=== PATIENT | female | born 1955 | race Caucasian/White ===

== ENCOUNTER 2018-12-21 17:02 | Emergency (ER) | payer MEDICARE ==
--- NOTE | 2018-12-21 17:49 | ED ---
Abdominal Pain/Female - HPI Summary HPI Summary: Patient complains of diffuse crampy abdominal pain and diarrhea 3. Per EMS patient also complained of being tachypnea clinically picked her up with O2 sats in the 80s. Patient states she does get anxious and tends to hyperventilate when anxious. Patient states abdominal pain resolved with third episode of diarrhea while waiting here in the waiting room. Also states shortness of breath and hyperventilation resolved at that time. Denies fever, cough, sore throat, CP, SOB, change in urine, vaginal symptoms. Medical history as HTN, hypothyroid, HDL, fibromyalgia. Abdominal surgical history is and Radha procedure and a half years ago. - History of Current Complaint Chief Complaint: EDAbdPain Stated Complaint: ABDOMINAL PAIN PER EMS Time Seen by Provider: 12/21/18 17:48 Hx Obtained From: Patient Onset/Duration: Sudden Onset, Lasting Hours Timing: Intermittent Episode Lasting Severity Initially: Severe Severity Currently: None Pain Intensity: 5 Pain Scale Used: 0-10 Numeric Location: Diffuse Character: Cramping Aggravating Factor(s): Nothing Alleviating Factor(s): Bowel Movement Associated Signs and Symptoms: Positive: Nausea, Diarrhea Allergies/Adverse Reactions: Allergies Allergy/AdvReac Type Severity Reaction Status Date / Time No Known Allergies Allergy Verified 12/21/18 17:46 PMH/Surg Hx/FS Hx/Imm Hx Endocrine/Hematology History: Denies: Hx Diabetes Cardiovascular History: Reports: Hx Hypertension Denies: Hx Pacemaker/ICD History: Denies: Hx Renal Disease Sensory History: Denies: Hx Eye Prosthesis, Hx Hearing Aid Opthamlomology History: Denies: Hx Legally Blind EENT History: Denies: Hx Deafness Psychiatric History: Denies: Hx Panic Disorder - Surgical History Surgery Procedure, Year, and Place: BILATERAL KNEE REPLACEMENTS 2014. LEFT SHOULDER REPLACEMENT 2014. DARIO PROCEDURE 2016 Infectious Disease History: No Infectious Disease History: Denies: Traveled Outside the [place] in Last 30 Days - Family History Known Family History: Positive: Non-Contributory - Social History Alcohol Use: Occasionally Hx Substance Use: No Hx Tobacco Use: No Review of Systems Positive: Fatigue Eyes: Negative ENT: Negative Cardiovascular: Negative Positive: Shortness Of Breath Positive: Abdominal Pain, Diarrhea, Nausea Genitourinary: Negative Musculoskeletal: Negative Skin: Negative Neurological: Negative Psychological: Normal All Other Systems Reviewed And Are Negative: Yes Physical Exam - Summary Physical Exam Summary: Abdomen soft nontender at this time. Triage Information Reviewed: Yes Vital Signs On Initial Exam: Initial Vitals Temp Pulse Resp BP Pulse Ox 100.6 F 67 20 111/50 98 12/21/18 17:13 12/21/18 17:13 12/21/18 17:13 12/21/18 17:13 12/21/18 17:13 Vital Signs Reviewed: Yes Appearance: Positive: Well-Appearing Skin: Positive: Warm Head/Face: Positive: Normal Head/Face Inspection Eyes: Positive: Normal Neck: Positive: Supple Respiratory/Lung Sounds: Positive: Clear to Auscultation Cardiovascular: Positive: Normal Abdomen Description: Positive: Nontender Musculoskeletal: Positive: Normal Neurological: Positive: Normal Psychiatric: Positive: Normal AVPU Assessment: Alert - [place] Coma Scale Best Eye Response: 4 - Spontaneous Best Motor Response: 6 - Obeys Commands Best Verbal Response: 5 - Oriented Coma Scale Total: 15 Procedures - Sedation Patient Received Moderate/Deep Sedation with Procedure: No Diagnostics - Vital Signs Vital Signs Temp Pulse Resp BP Pulse Ox 12/21/18 17:13 100.6 F 67 20 111/50 98 - Laboratory Result Diagrams: 12/21/18 18:36 12/21/18 18:36 Lab Statement: Any lab studies that have been ordered have been reviewed, and results considered in the medical decision making process. Abdominal Pain Fem Course/Dx - Course Course Of Treatment: Patient complains of diffuse crampy abdominal pain and diarrhea 3. Per EMS patient also complained of being tachypnea clinically picked her up with O2 sats in the 80s. Patient states she does get anxious and tends to hyperventilate when anxious. Patient states abdominal pain resolved with third episode of diarrhea while waiting here in the waiting room. Also states shortness of breath and hyperventilation resolved at that time. Denies fever, cough, sore throat, CP, SOB, change in urine, vaginal symptoms. Medical history as HTN, hypothyroid, HDL, fibromyalgia. Abdominal surgical history is and Radha procedure and a half years ago. Vital signs within normal limits. Is equal exam unremarkable. WBC 12.8. Lactic 4.0. Labs otherwise within normal limits. Patient received 2 L normal saline. Repeat lactic 2.1. No further symptoms during stay in the ED. - Diagnoses Provider Diagnoses: Diarrhea Discharge ED - Sign-Out/Discharge Documenting (check all that apply): Patient Departure - Discharge Plan Condition: Stable Disposition: HOME Patient Education Materials: Acute Diarrhea (ED) Referrals: Maris Mejia MD [Primary Care Provider] - Additional Instructions: Drink plenty of fluids to maintain hydration. Return to the ED for any worsening symptoms. - Billing Disposition and Condition Condition: STABLE Disposition: Home - Attestation Statements Provider Attestation: I was available for consult. This patient was seen by the RAD[facility]. The patient was not presented to, seen by, or examined by me. Collin Beasley MD
[2018-12-21] MEDS ORDERED: NS 0.9% 1000 ML** 1,000 ML IV ONE ×2 (17:55→20:27)
--- OUTSIDE RECORDS SUMMARY | 2018-12-21 18:36 | XMS REPORT | Continuity of Care Document ---
:1955 External Reference #:[id number] Author Name Dolores Nettles NP (transmitted by agent of provider Trinity Lopez) Address [address] [facility], [address] [place] [id number] Care Team Providers Name Role Phone Maris Posada MD - Internal Medicine Care Team Information Gifted Program Teacher [phone] Problems Active Problems Provider Date Arthroplasty of knee Maria Dolores Murphy M.D. Onset: 08/19/2016 Prosthetic arthroplasty of the hip Maria Dolores Murphy M.D. Onset: 08/19/2016 Obstructive sleep apnea syndrome Annie Gomez MD Onset: 10/13/2016 Tremor Shelbie Bruce M.D. Onset: 11/15/2016 Functional fecal incontinence Shelbie Bruce M.D. Onset: 11/15/2016 Low back pain Maria Dolores Murphy M.D. Onset: 11/30/2016 Body mass index 30+ - obesity Margy Laird DNP, RN, [employer]- Onset: 2017 Social History Type Date Description Comments Sex Unknown Tobacco Use Start: Unknown Former Cigarette End: Unknown Smoker ETOH Use Currently consumes occasional wine alcohol Tobacco Use Start: Unknown Patient is a former smoked for 3yrs 1PPD End: Unknown smoker Recreational Drug Use Denies Drug Use Tobacco Use Start: Unknown Secondhand smoke Indoors, 1x per week exposure or two Smoking Status Reviewed: 12/05/18 Secondhand smoke Indoors, 1x per week exposure or two Exercise Type/Frequency Does not exercise Allergies, Adverse Reactions, Alerts Description No Known Drug Allergies Medications Active Medications SIG Qnty Indications Ordering Date Provider Gabapentin 1 capsule by capri Sheehan, 08/31/2018 300mg Capsules mouth three MD times a day, after finishing the 200 mg twice a day for two weeks, Gabapentin take 2 tabs by 56caps G25.81 Donald Sheehan, 08/27/2018 100mg Capsules mouth twice a MD day for 2 weeks, then switch to 300 mg caps Proair HFA 2 puffs every 8.500gm J06.9 Alexandria Abdallabull, 05/07/2018 108(90Base) 4-6 hours as N.P. mcg/Act Aerosol needed Fluticasone Propionate 2 spray in each 16units J06.9 [place] Mustafa, 05/07 nostril in in N.P. 50mcg/Act Suspension the morning prn Amoxicillin 4 caps 1 hour 4caps [place] Mustafa, 08/29/2017 500mg Capsules before dental N.P. work (has taken this before without problems) Fentanyl 1 patch q 3 day Unknown 25mcg/HR Patches 72HR Myrbetriq daily Unknown 25mg Tablets ER 24HR Melatonin 1 tab by mouth Unknown 10mg Capsules at bedtime as needed for insomnia Calcium 500+D 1 by mouth every Unknown day [id number] Tablets Prochlorperazine 1 by mouth 4 Unknown Maleate times a day as 5mg Tablets needed Nexium 24HR 1 by mouth twice Unknown 20mg Tablets DR a day Desvenlafaxine ER 1 tab po qd Unknown 100mg Tablets ER 24HR Vitamin B Complex super complex 1 Unknown Tablets tab po qod Colestipol HCL 1 by mouth daily Unknown 1gm Tablets Olmesartan 1 tab po daily Unknown Medoxomil/Hydrochloroth iazide 40-25mg Tablets Multi Complete daily Unknown Capsules Oxycodone HCL 1-2 tabs by Unknown 5mg Capsules mouth every 4-6 hours as needed pain Synthroid take one tablet Unknown 0.1mg Tablets by mouth once daily as directed Celebrex 1 by mouth bid Unknown 200mg Capsules History Medications Pristiq 2 tabs by mouth in Alexandria Mustafa, N.P. 08/27/2018 - 100mg the evening 08/26/2018 Tablets ER 24HR Pristiq take one Alexandria Mustafa, N.P. 07/03/2018 - 50mg capsule/tablet 08/27/2018 Tablets ER 24HR daily by mouth Immunizations CPT Code Status Date Vaccine Lot # [id number] Given 11/23/2015 Influenza Virus 3Yrs & Over Vital Signs Date Vital Result Comment 12/05/2018 9:50am Height 67 inches 5'7" Weight 223.00 lb Heart Rate 64 /min BP Systolic Sitting 120 mmHg Lue large cuff BP Diastolic Sitting 76 mmHg Lue large cuff Respiratory Rate 12 /min O2 % BldC Oximetry 97 % BMI (Body Mass Index) 34.9 kg/m2 10/03/2018 10:41am Height 67 inches 5'7" Weight 218.25 lb Heart Rate 54 /min BP Systolic Sitting 130 mmHg Lue large cuff BP Diastolic Sitting 78 mmHg Lue large cuff Respiratory Rate 12 /min O2 % BldC Oximetry 95 % BMI (Body Mass Index) 34.2 kg/m2 Results Test Date Facility Test Result H/L Range Note Laboratory test 09/17/2018 [facility] C Reactive 3.69 mg/L Normal <8.01 1, [address] [place] [address] [phone] Erythrocyte Sed Rate 5 mm/Hr Normal 0-29 3 Laboratory test 08/27/2018 [facility] Iron (Fe) 61 g/dL Normal 50-[address] [place], [place] [id number] [phone] Ferritin 22.2 ng/mL Normal 11-307 1 [id number] 2 [id number] Procedures Date Code Description Status 11/13/2018 20637 Polysomnography Sleep Staging 4+ Parameters W/Cpap Completed Medical Devices Description No Information Available Encounters Type Date Location Provider Dx Diagnosis Office Visit 10/03/2018 [facility] G47.33 Obstructive sleep 10:30a [facility] apnea (adult) [employer] (pediatric) G25.81 Restless legs syndrome G47.14 Hypersomnia due to medical condition Office Visit 09/24/2018 [facility] Maria Elena H92.01 Otalgia, right 1:00p [facility] P[facility] ear Office Visit 09/17/2018 [facility] Alexandria H92.01 Otalgia, right 8:34a Moon, N.P. ear Office Visit 08/27/2018 [facility] Donald Sheehan, G47.33 Obstructive 9:00a Clinic [facility] sleep apnea (adult) (pediatric) G25.81 Restless legs syndrome Office Visit 07/03/2018 [facility] G47.33 Obstructive sleep 9:30a [facility] apnea (adult) [facility] (pediatric) G47.14 Hypersomnia due to medical condition Assessments Date Code Description Provider 12/05/2018 G47.33 Obstructive sleep apnea (adult) (pediatric) Dolores Nettles NP 12/05/2018 G25.81 Restless legs syndrome Dolores Nettles NP 12/05/2018 G47.14 Hypersomnia due to medical condition Dolores Nettles NP 11/13/2018 G47.33 Obstructive sleep apnea (adult) (pediatric) Annie Gomez MD 10/03/2018 G47.33 Obstructive sleep apnea (adult) (pediatric) Dolores Nettles NP 10/03/2018 G25.81 Restless legs syndrome Dolores Nettles NP 10/03/2018 G47.14 Hypersomnia due to medical condition Dolores Nettles NP 09/24/2018 H92.01 Otalgia, right ear Maria Elena Pérez, CAR 09/17/2018 H92.01 Otalgia, right ear Alexandria Mustafa, N.P. 08/27/2018 G47.33 Obstructive sleep apnea (adult) (pediatric) Donald Sheehan MD 08/27/2018 G25.81 Restless legs syndrome Donald Sheehan MD 07/03/2018 G47.33 Obstructive sleep apnea (adult) (pediatric) Dolores Nettles NP 07/03/2018 G47.14 Hypersomnia due to medical condition Dolores Nettles NP Plan of Treatment Future Appointment(s):01/16/2019 11:00 am - Dolores Nettles NP at [facility]12/05/2018 - Dolores Nettles NPG47.33 Obstructive sleep apnea (adult) (pediatric)Follow up:6 weeksRecommendations:You are being set up with a new ASV machine for your sleep apnea through [facility] . They will call you to set up an appointment to shredder picker your machine. If you have difficulty with your equipment, or need to replace your mask or hoses, please contact your homecare agency. If you have any further questions, please call the [facility] at [phone] If you haveany sleepiness while driving you MUST avoid operating a vehicle or machinery. 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 If you know you are sleepy and need to go somewhere, arrange for a ride or use public transportation. It is very important to not risk your safety or the safety of others.G25.81 Restless legs [id number] Hypersomnia due to medical condition Functional Status Description No Information Available Mental Status Description No Information Available Referrals Description No Information Available
[2018-12-21 18:43] LABS: ABS Lymphocytes 0.2 10^3/ul (1.0-4.8); ABS Monocytes 0.4 10^3/ul (0-0.8); ABS Neutrophils 12.1 10^3/ul (1.5-7.7); Eosinophil % 0.4 %; Hematocrit 41 % (35-47); Hemoglobin 13.4 g/dL (12.0-16.0); Lymphocyte % 1.8 %; Mean Corpuscular HGB Conc 33 g/dL (31-36); Mean Corpuscular Hemoglobin 25 pg (27-31); Mean Corpuscular Volume 78 fL (80-97); Mean Platelet Volume 7.9 fL (7.4-10.4); Platelet Count 318 10^3/uL (150-450); Red Blood Count 5.27 10^6 /uL (3.70-4.87); Red Cell Distribution Width 17 % (10-15); White Blood Count 12.8 10^3/uL (3.5-10.8)
[2018-12-21 19:07] LABS: ALT 15 U/L (7-52); AST 17 U/L (13-39); Albumin 4.2 g/dL (3.2-5.2); Albumin/Globulin Ratio 1.5 (1-3); Alkaline Phosphatase 83 U/L (34-104); Anion Gap 12 mmol/L (2-11); BUN/Creatinine Ratio 17.9 (8-20); Blood Urea Nitrogen 15 mg/dL (6-24); CO2 Carbon Dioxide 22 mmol/L (22-32); Calcium 9.1 mg/dL (8.6-10.3); Chloride 101 mmol/L (101-111); EGFR African American 82.3 (>60); Globulin 2.8 g/dL (2-4); Glucose 126 mg/dL (70-100); Potassium 3.7 mmol/L (3.5-5.0); Sodium 135 mmol/L (135-145)
[2018-12-21 19:30] LABS: TSH (Thyroid Stimulating Horm) 0.75 mcIU/mL (0.34-5.60)
[2018-12-21] MEDS ORDERED: LORazepam TAB(*) 1 MG PO ONE (21:45)
[2018-12-21 23:36] VITALS: BP 104/75
== END 2018-12-21 23:35 | disposition home or self-care (01) ==
LOC: ED 17:02
DX: R19.7 Diarrhea, unspecified (principal); I10 Essential (primary) hypertension; E03.9 Hypothyroidism, unspecified; E78.5 Hyperlipidemia, unspecified; M79.7 Fibromyalgia; Z96.653 Presence of artificial knee joint, bilateral; Z96.612 Presence of left artificial shoulder joint
CPT/HCPCS: 36415; 80053; 83605; 83630; 83690; 84443; 84484; 85025; 86140; 87040; 87045; 87046; 87077; 87899; 93005; 96360; 96361; 99284; A9270-GY

== ENCOUNTER 2019-04-13 09:15 | Emergency (ER) | payer MEDICARE ==
[2019-04-13 09:42] VITALS: BP 140/81
--- NOTE | 2019-04-13 10:39 | UC ---
Back Pain HPI - HPI Summary HPI Summary: 64-year-old woman comes in with a chief complaint of low back pain. Started several days ago. Pains worse at night. Pain is worse with twisting turning bending. Denies any shortness of breath abdominal pain urinary or bowel symptoms. Patient has a history of fibromyalgia and restless legs and she is on a fentanyl patch and takes oxycodone in the evenings. She was prescribed cyclobenzaprine aspirin 5 mg once a day in the morning. Patient reports is not helping at all. Patient is not able to take nonsteroidal anti-inflammatories. No complaint of any loss of strength or numbness. - History of Current Complaint Chief Complaint: UCBackPain Stated Complaint: BACK PAIN Time Seen by Provider: 04/13/19 10:16 Pain Intensity: 3 - Allergies/Home Medications Allergies/Adverse Reactions: Allergies Allergy/AdvReac Type Severity Reaction Status Date / Time No Known Allergies Allergy Verified 04/13/19 09:43 Home Medications: Home Medications Desvenlafaxine(NF) [Pristiq(NF)] 100 mg PO DAILY 05/09/18 [History Confirmed ] Hctz/Olmesartan 25/40 Mg 1 tab PO DAILY 05/09/18 [History Confirmed 06/05/18] Levothyroxine TAB* [Synthroid TAB*] 100 mcg PO DAILY 05/09/18 [History Confirmed 04/13/19] Mirabegron [Myrbetriq] 25 mg PO DAILY 05/09/18 [History Confirmed 04/13/19] Multivitamins/Minerals TAB* [Theragran/minerals TAB*] 1 tab PO DAILY 05/09/18 [ History Confirmed 04/13/19] Ondansetron TAB* [Zofran 4 MG Tab*] 4 mg PO .Q 4-6 HOURS PRN 05/09/18 [History Confirmed 04/13/19] Prochlorperazine Maleate 5 mg PO QID PRN 05/09/18 [History Confirmed 04/13/19] Vitamin B Complex [Super B-50 Complex] 1 cap PO DAILY 05/09/18 [History Confirmed 04/13/19] celeCOXIB CAP* [CeleBREX CAP*] 200 mg PO BID 05/09/18 [History Confirmed ] oxyCODONE TAB* [Roxycodone TAB 5 mg*] 10 mg PO Q4H PRN 05/09/18 [History Confirmed 04/13/19] Amlodipine Besylate [Norvasc] 5 mg PO DAILY PRN 06/05/18 [History Confirmed ] Colestipol HCl 1,000 gm PO DAILY 06/05/18 [History Confirmed 04/13/19] Esomeprazole(NF) [NEXium(NF)] 20 mg PO DAILY 06/05/18 [History Confirmed ] Calcium Carbonate [Calcium] 1 tab PO DAILY 04/13/19 [History Confirmed 04/13/19] Cyclobenzaprine TAB* [Flexeril 10 MG TAB*] 10 mg PO TID PRN #15 tab MDD 3 [Rx] Gabapentin 200 mg PO TID 04/13/19 [History Confirmed 04/13/19] fentaNYL [Fentanyl] 1 dose TOPICAL Q72H 04/13/19 [History Confirmed 04/13/19] PMH/Surg Hx/FS Hx/Imm Hx Previously Healthy: Yes - FIBROMYALGIA,RESTLESS LEGS Endocrine History: Hypothyroidism Cardiovascular History: Hypertension GI/ History: Gastroesophageal Reflux - Surgical History Surgical History: Yes Surgery Procedure, Year, and Place: BILATERAL KNEE REPLACEMENTS 2013. LEFT SHOULDER REPLACEMENT 2013. DARIO PROCEDURE 2016 - Family History Known Family History: Positive: Non-Contributory - Social History Alcohol Use: Occasionally Alcohol Amount: wine, most days of the week Substance Use Type: Prescribed Substance Use Comment - Amount & Last Used: oxycodone Smoking Status (MU): Former Smoker Review of Systems All Other Systems Reviewed And Are Negative: Yes Constitutional: Positive: Negative Skin: Positive: Negative Eyes: Positive: Negative ENT: Positive: Negative Respiratory: Positive: Negative Cardiovascular: Positive: Negative Gastrointestinal: Positive: Negative Genitourinary: Positive: Negative Motor: Positive: Negative Neurovascular: Positive: Negative Musculoskeletal: Positive: Other: - SEE HPI Neurological/Mental Status: Positive: Negative Psychological: Positive: Negative Is Patient Immunocompromised?: No Physical Exam Triage Information Reviewed: Yes Appearance: Well-Appearing, Well-Nourished, Pain Distress - MILD WITH BACK ROM Vital Signs: Initial Vital Signs Temp 98 F 04/13/19 09:40 Pulse 66 04/13/19 09:40 Resp 16 04/13/19 09:40 BP 140/81 04/13/19 09:40 Pulse Ox 100 04/13/19 09:40 Vital Signs Reviewed: Yes Eye Exam: Normal Eyes: Positive: Conjunctiva Clear Neck: Positive: Supple Respiratory: Positive: No respiratory distress Musculoskeletal: Positive: Other: - Mild tenderness to palpation in the paraspinous muscles on either side of the lumbar spine. Legs have full range of motion full-strength. Neurological: Positive: Alert Psychological: Positive: Age Appropriate Behavior Skin Exam: Normal Back Pain Course/Dx - Course Course Of Treatment: Patient's already on a fentanyl patch and taking oxycodone and cannot take nonsteroidal anti-inflammatories. Patient reports that lidocaine patches don't stick on her so therefore she does not use them. She is already using heat on the area. Plan is to take Flexeril 10 mg in the evening says the pain bothers her the most at night. At this time by history and examination this is a musculoskeletal low back pain with out neurologic deficit. We discussed that if there is any change in the symptoms or worsening, the patient needs to get reevaluated right away. - Differential Dx/Diagnosis Provider Diagnosis: Low back pain Discharge ED - Sign-Out/Discharge Documenting (check all that apply): Patient Departure All imaging exams completed and their final reports reviewed: No Studies - Discharge Plan Condition: Stable Disposition: HOME Prescriptions: Cyclobenzaprine TAB* [Flexeril 10 MG TAB*] 10 mg PO TID PRN #15 tab MDD 3 PRN Reason: Pain - Moderate Patient Education Materials: Acute Low Back Pain (ED), Lower Back Exercises (ED ) Referrals: Maris Mejia MD [Primary Care Provider] - Additional Instructions: FOLLOW UP WITH YOUR DOCTOR IF NOT COMPLETELY IMPROVED. GET REEVALUATED SOONER IF NOT IMPROVED OR WORSE; PAIN, WEAKNESS, NUMBNESS, CHANGES IN BOWEL OR BLADDER OR ANY QUESTIONS OR CONCERNS. - Billing Disposition and Condition Condition: STABLE Disposition: Home
== END 2019-04-13 10:51 | disposition home or self-care (01) ==
LOC: UCEAST 09:15
DX: M54.5 Low back pain (principal); M79.7 Fibromyalgia; G25.81 Restless legs syndrome; E03.9 Hypothyroidism, unspecified; I10 Essential (primary) hypertension; K21.9 Gastro-esophageal reflux disease without esophagitis; Z79.899 Other long term (current) drug therapy; Z87.891 Personal history of nicotine dependence; Z79.890 Hormone replacement therapy
CPT/HCPCS: 99212; G0463